=== PATIENT | female | born 1990 | race Caucasian/White ===

== ENCOUNTER → 2020-02-15 15:00 | Observation (INO) | END | disposition home or self-care (01) | LOC: 1NENULAB | PROVIDERS: ADMIT Student in an Organized Health Care Education/Training Program; ATTEND Student in an Organized Health Care Education/Training Program ==

== ENCOUNTER 2020-02-23 08:00 | Inpatient (IN) ==
[2020-02-23] MEDS ORDERED: Famotidine 20 MG/2 ML VIAL IVP PRN (10:14)
[2020-02-23] MEDS ORDERED: Ondansetron 4 MG/2 ML VIAL IVP PRN (10:14)
[2020-02-23] MEDS ORDERED: Naloxone 0.4 MG/ML INJ IVP PRN (10:14)
[2020-02-23] MEDS ORDERED: Azithromycin 500 MG in 0.9 % Sodium Chloride 250 ML IVPB ONE (10:14)
[2020-02-23] MEDS ORDERED: Metoclopramide 10 MG/2 ML VIAL IVP PRN (10:14)
[2020-02-23 11:11] LABS: Amphetamine Screen,Urine Negative ng/mL (Cutoff=1000); Barbiturate Screen,Urine Negative ng/mL (Cutoff=200); Benzodiazepines Screen,Urine Negative ng/mL (Cutoff=200); Cannabinoid Screen,Urine Positive ng/mL (Cutoff = 50); Cocaine Screen,Urine Negative ng/mL (Cutoff= 300); Opiate Screen,Urine Negative ng/mL (Cutoff=300); Phencyclidine Screen,Urine Negative ng/mL (Cutoff=25)
[2020-02-23 11:20] LABS: Basophils % 0.5 %; Eosinophils # 0.1 K/mcL (0.0-0.6); Eosinophils % 1.6 %; Hematocrit 34.3 % (35.3-44.9); Hemoglobin 10.9 g/dL (11.5-15.4); Immature Granulocytes % 0.4 % (0-4); Lymphocytes # 1.5 K/mcL (0.6-4.6); Lymphocytes % 19.9 %; Mean Corpuscular HGB Conc 31.8 g/dL (31.6-35.5); Mean Corpuscular Volume 85.1 fL (83.0-100.0); Mean Platelet Volume 10.4 fL (9.4-12.4); Monocytes # 0.3 K/mcL (0.0-1.3); Monocytes % 4.5 %; Neutrophils # 5.5 K/mcL (1.6-8.9); Platelet Count 281 K/mcL (140-400); Red Blood Count 4.03 M/mcL (3.82-4.97); Red Cell Distribution Width 13.4 % (11.5-14.5); Segmented Neutrophils % 73.1 %; White Blood Count 7.5 K/mcL (4.3-11.1)
[2020-02-23] MEDS ORDERED: Oxytocin 20 units/ LR 1000 mL 20 UNIT/1,000 ML BAG IVC SCH (16:15)
[2020-02-23] MEDS ORDERED: Ringers Solution, Lactated 1,000 ML ONE ×2 (16:29→19:19)
[2020-02-23] MEDS ORDERED: EPHEDrine 50 MG/ML VIAL IVP PRN (17:55)
[2020-02-23] MEDS ORDERED: *HR* FentaNYL (PF) 100 MCG/2 ML VIAL EP ONE (17:55)
[2020-02-23] MEDS ORDERED: Ropivacaine/PF 0.2% 20 ML VIAL EP ONE (17:55)
[2020-02-23] MEDS ORDERED: Epidural Premix (fent/bupiv) 110 ML EP SCH (18:00)
[2020-02-23] MEDS ORDERED: Epidural Premix (fent/bupiv) 110 ML EP ONE (18:03)
[2020-02-24] MEDS ORDERED: Acetaminophen 325 MG TABLET PO PRN
[2020-02-24] MEDS ORDERED: Oxytocin 20 units/ LR 1000 mL 20 UNIT/1,000 ML BAG IVC SCH
[2020-02-24] MEDS ORDERED: Benzocaine/Menthol 56 GM AEROSOL SPRAY TP PRN
[2020-02-24] MEDS ORDERED: Lanolin 7 G OINT...G. TP PRN
[2020-02-24] MEDS ORDERED: *HR* Buprenorphine HCl 8 MG TAB.SUBL SL SCH
[2020-02-24] MEDS: *HR* Buprenorphine HCl 8 MG TAB.SUBL SL SCH ×3 (00:47→22:16)
[2020-02-24] MEDS: Ibuprofen 600 MG TABLET PO PRN ×3 (02:17→18:29)
[2020-02-24] MEDS: Prenatal Vit/FA 1 EACH TABLET PO SCH (07:53)
[2020-02-25 07:58] VITALS: BP 111/73
[2020-02-25] MEDS: *HR* Buprenorphine HCl 8 MG TAB.SUBL SL SCH (09:06)
[2020-02-25] MEDS: Prenatal Vit/FA 1 EACH TABLET PO SCH (09:06)
[2020-02-25] MEDS: Ibuprofen 600 MG TABLET PO PRN (09:15)
== END 2020-02-25 12:00 | disposition home or self-care (01) | DRG 560 ==
LOC: 1NENULAB 08:54 → 1NENUOBS 23:59
PROVIDERS: ADMIT Registered Nurse; ATTEND Registered Nurse